=== PATIENT | male | born 1985 | race Caucasian/White ===

== ENCOUNTER 2024-04-06 21:20 | Emergency (ER) | payer OTHER ==
[~2024-04-06] VITALS: Ht 185.4 cm; Wt 218.0 kg
[2024-04-06 21:37] LABS: COVID AG,FIA SOURCE NASAL SWAB
[2024-04-06 21:45] VITALS: TEMP 99.7
[2024-04-06 21:55] LABS: INFLUENZA TYPE B NEGATIVE FOR TYPE B (NEGATIVE); SARS-COV2 (COVID) ANTIGEN,FIA Negative (Negative)
[2024-04-06 22:07] VITALS: BP 140/73; PULSE 89; RESP 18; O2SAT 95
[2024-04-06 22:39] LABS: INFLUENZA TYPE A POSITIVE FOR TYPE A (NEGATIVE)
[2024-04-06] MEDS ORDERED: ALBU18HF12 IH (23:22)
[2024-04-06] MEDS ORDERED: OSEL75CA45 PO (23:22)
== END 2024-04-06 23:42 | disposition home or self-care (01) ==
LOC: EMS 21:20
DX: J11.1 Influenza due to unidentified influenza virus with other respiratory manifestations (principal); J45.909 Unspecified asthma, uncomplicated; Z20.822 Contact with and (suspected) exposure to COVID-19
CPT/HCPCS: 71045; 87804; 99284

== ENCOUNTER 2024-10-25 17:12 | Emergency (ER) | payer OTHER ==
[~2024-10-25] VITALS: Ht 185.4 cm; Wt 222.0 kg
[~2024-10-25 17:12] MED LIST: ALBU18HF12 IH; OSEL75CA45 PO
[2024-10-25 17:28] VITALS: BP 133/77; PULSE 73; RESP 18; TEMP 98.1; O2SAT 97
[2024-10-25 19:04] LABS: PLATELET COUNT (AUTO) 232 K/uL (150-450); RED BLOOD CELL COUNT(AUTO) 5.38 MIL/uL (4.50-5.90); RED CELL DISTRIBUTION WIDTH 14.4 % (11.5-14.5); WHITE BLOOD COUNT (AUTO) 10.9 K/uL (4.5-11.0)
[2024-10-25 19:13] LABS: CALCIUM, TOTAL 9.1 mg/dL (8.8-10.5); CREATININE 0.77 mg/dL (0.60-1.30); GLOMERULAR FILTR. RATE CALC > 60 mL/min (>60); GLUCOSE,RANDOM 86 mg/dL (70-110); SODIUM SERUM 141 mmol/L (136-145); UREA NITROGEN, BLOOD 14 mg/dL (7-18)
[2024-10-25] MEDS: MECLIZINE HCL 25 MG TABLET PO ONE (20:47)
[2024-10-25] MEDS ORDERED: MECL-302 PO (21:28)
== END 2024-10-25 21:47 | disposition home or self-care (01) ==
LOC: EMS 17:12
DX: R51.9 Headache, unspecified (principal)
CPT/HCPCS: 80048; 85025; 93005; 99284